=== PATIENT | female | born 1940 | race Caucasian/White ===

== ENCOUNTER 2018-03-30 06:47 | Inpatient (IN) ==
--- NOTE | 2018-03-30 07:12 | ED ---
HPI General Chief Complaint: Altered Mental Status Stated Complaint: resp Time Seen by Provider: 03/30/18 06:51 History of Present Illness HPI narrative: This is a 77-year-old female with a history of COPD, hypertension , dyslipidemia, recent pneumonia, who [facility] status. The patient is unable to give any history. According to the paramedics, when they arrived there, she was obtunded. She would arouse to sternal rub. There is no reported fevers. The patient reportedly recently had a mandible fracture and a recent pneumonia. Report was that she had coarse rhonchorous respirations when paramedics arrived. The patient is awake answering questions when she arrived here. Related Data Home Medications Medication Instructions Recorded Confirmed acetaminophen 650 mg PO Q4H PRN 03/30/18 03/30/18 albuterol sulfate 2.5 mg INHALATION Q4H PRN 03/30/18 03/30/18 atenolol 50 mg PO DAILY 03/30/18 03/30/18 budesonide 0.5 mg INHALATION BID 03/30/18 03/30/18 buspirone 7.5 mg PO BID 03/30/18 03/30/18 cefuroxime axetil 250 mg PO Q12H 03/30/18 03/30/18 ipratropium-albuterol 3 ml INHALATION QID 03/30/18 03/30/18 ipratropium-albuterol [Combivent 1 puff INHALATION TID 03/30/18 03/30/18 Respimat] magnesium hydroxide [Milk of 15 ml PO DAILY PRN 03/30/18 03/30/18 Magnesia] montelukast 10 mg PO QPM 03/30/18 03/30/18 simethicone [Gas-X Extra Strength] 125 mg PO TID 03/30/18 03/30/18 valsartan 160 mg PO DAILY 03/30/18 03/30/18 Allergies Allergy/AdvReac Type Severity Reaction Status Date / Time No Known Allergies Allergy Verified 03/30/18 07:40 Review of Systems Constitutional Denies chills and Denies fever(s) Eyes Reports system reviewed and no additional complaints, except as docu ENT Reports system reviewed and no additional complaints, except as docu Cardiovascular Denies chest pain, Denies diaphoresis and Reports dyspnea Respiratory Denies chest congestion, Reports cough and Reports dyspnea Gastrointestinal Denies abdominal pain, Denies nausea and Denies vomiting Genitourinary Reports system reviewed and no additional complaints, except as docu Musculoskeletal Reports system reviewed and no additional complaints, except as docu Neurologic Denies headache(s), Reports weakness (Generalized weakness) and Reports other ( Reported decreased mental status. Patient is now awake and able to answer questions.) [facility] Medical History Medical History Allergic rhinitis (Acute) Anxiety (Acute) COPD (chronic obstructive pulmonary disease) (Acute) Fall (Acute) GERD (gastroesophageal reflux disease) (Acute) HLD (hyperlipidemia) (Acute) HTN (hypertension) (Acute) Mandible fracture (Acute) PNA (pneumonia) (Acute) Social History Social History Substance History: No History of Abuse Smoking Status: Former smoker How Often Do You Have a Drink Containing Alcohol: Never Recent Travel in [facility] within the Last 8 Weeks: No Recent Out of Country Travel within the Last 8 Weeks: No Immunization History Tetanus Immunization: Unable to Assess Exam Narrative Exam Narrative: GENERAL: Elderly weak appearing female in mild respiratory discomfort. SKIN: Focused skin assessment warm/dry. HEAD: Atraumatic. Normocephalic. EYES: No scleral icterus. No injection or drainage. ENT: No nasal bleeding or discharge. Mucous membranes pink and moist. NECK: Trachea midline. No JVD. Supple. CARDIOVASCULAR: Regular rate and rhythm. No ectopy appreciated. RESPIRATORY: Coarse rhonchi bilaterally. Decreased respiratory effort. GASTROINTESTINAL: Abdomen soft, non-tender, nondistended. Hepatic and splenic margins not palpable. MUSCULOSKELETAL: No obvious deformities. No clubbing. No cyanosis. No edema. NEUROLOGICAL: Arousable. No obvious cranial nerve deficits. Motor grossly within normal limits. Weak speech. PSYCHIATRIC: Appropriate mood and affect; insight and judgment normal. Course Initial Documented Vital Signs Pulse Rate 79 03/30/18 06:58 Respiratory Rate 16 03/30/18 06:58 Blood Pressure 175/83 H 03/30/18 06:58 Pulse Oximetry 100 03/30/18 06:58 Last Documented Vital Signs Temperature 98.4 F 03/30/18 07:34 Pulse Rate 72 03/30/18 08:34 Respiratory Rate 16 03/30/18 08:34 Blood Pressure 185/82 H 03/30/18 08:34 Pulse Oximetry 100 03/30/18 08:34 Medical Decision Making MDM Narrative Medical decision making narrative: This is a 77-year-old female who [facility] for reported altered [facility] status. Patient was recently seen at another hospital and diagnosed with a mandible fracture and ammonia. The patient still has a left lower lobe pneumonia. She is currently being treated for that. She is afebrile. Her white blood cell count is within normal limits. EKG shows normal sinus rhythm with no acute ST elevation or depression. Her labs revealed a troponin of 0.5. The patient is not complaining of chest pain. She does have a cough and was having some shortness of breath. She is awake and able to answer questions now.She will be admitted for observation. I spoke with Tisha from Dr. Townsend office who agrees with the plan. Medical Screen Exam Complete: Yes Emergency Medical Condition: Yes Differential Diagnosis Differential Diagnosis: Sepsis versus pneumonia intracranial injury versus metabolic derangement Lab Data Result diagrams: 03/30/18 07:25 03/30/18 07:25 Lab Results 03/30/18 03/30/18 03/30/18 Range/Units 07:25 07:25 07:25 WBC 8.1 (4.0-11.0) th/mm3 RBC 4.06 (4.00-5.30) mil/mm3 Hgb 11.7 (11.6-15.3) gm/dL Hct 35.1 (35.0-46.0) % MCV 86.4 (80.0-100.0) fL MCH 28.8 (27.0-34.0) pg MCHC 33.3 (32.0-36.0) % RDW 14.7 (11.6-17.2) % Plt Count 177 (150-450) th/mm3 MPV 8.6 (7.0-11.0) fL Neut % (Auto) 74.0 H (16.0-70.0) % Lymph % (Auto) 17.5 (9.0-44.0) % Nicholas % (Auto) 7.5 (0.0-8.0) % Eos % (Auto) 0.3 (0.0-4.0) % Baso % (Auto) 0.7 (0.0-2.0) % Neut # (Auto) 6.0 (1.8-7.7) th/mm3 Lymph # (Auto) 1.4 (1.0-4.8) th/mm3 Nicholas # (Auto) 0.6 (0.0-0.9) th/mm3 Eos # (Auto) 0.0 (0.0-0.4) th/mm3 Baso # (Auto) 0.1 (0.0-0.2) th/mm3 WBC Differential . Differential Comment Auto diff final Sodium 134 L (136-145) meq/L Potassium 4.2 (3.5-5.1) meq/L Chloride 96 L (98-107) meq/L Carbon Dioxide 30.1 (21.0-32.0) meq/L Anion Gap 8 (5-15) meq/L BUN 19 H (7-18) mg/dL Creatinine 0.81 (0.50-1.00) mg/dL Estimated GFR 68 L (>89) mL/min Random Glucose 89 (74-106) mg/dL Lactic Acid 0.9 (0.4-2.0) mmol/L Calcium 8.2 L (8.5-10.1) mg/dL Magnesium 1.3 L (1.5-2.5) mg/dL Total Bilirubin 0.6 (0.2-1.0) mg/dL AST 15 (15-37) U/L ALT 21 (10-53) U/L Alkaline Phosphatase 58 (45-117) U/L Troponin I 0.50 H (0.02-0.05) ng/mL Total Protein 6.0 L (6.4-8.2) g/dL Albumin 2.9 L (3.4-5.0) g/dL TSH 0.910 (0.358-3.740) uIU/mL Urine Color (Yellw/Straw) Urine Clarity (Clear) Urine pH (5.0-8.5) Ur Specific [place] (1.002-1.035) Urine Protein (Neg-Trace) mg/dL Urine Glucose (UA) (Negative) mg/dL Urine Ketones (Negative) mg/dL Urine Occult Blood (Negative) Urine Nitrate (Negative) Urine Bilirubin (Negative) Urine Urobilinogen (Less than 2) mg/dL Ur Leukocyte Esterase (Negative) Urine RBC (0-3) /hpf Urine WBC (0-5) /hpf Ur Squamous Epith Cells (0-5) /hpf Urine Mucus (Occasional) /lpf Micro UA Comment Ur Microscopic Review Urine Culture Comments 03/30/18 Range/Units 07:30 WBC (4.0-11.0) th/mm3 RBC (4.00-5.30) mil/mm3 Hgb (11.6-15.3) gm/dL Hct (35.0-46.0) % MCV (80.0-100.0) fL MCH (27.0-34.0) pg MCHC (32.0-36.0) % RDW (11.6-17.2) % Plt Count (150-450) th/mm3 MPV (7.0-11.0) fL Neut % (Auto) (16.0-70.0) % Lymph % (Auto) (9.0-44.0) % Nicholas % (Auto) (0.0-8.0) % Eos % (Auto) (0.0-4.0) % Baso % (Auto) (0.0-2.0) % Neut # (Auto) (1.8-7.7) th/mm3 Lymph # (Auto) (1.0-4.8) th/mm3 Nicholas # (Auto) (0.0-0.9) th/mm3 Eos # (Auto) (0.0-0.4) th/mm3 Baso # (Auto) (0.0-0.2) th/mm3 WBC Differential Differential Comment Sodium (136-145) meq/L Potassium (3.5-5.1) meq/L Chloride (98-107) meq/L Carbon Dioxide (21.0-32.0) meq/L Anion Gap (5-15) meq/L BUN (7-18) mg/dL Creatinine (0.50-1.00) mg/dL Estimated GFR (>89) mL/min Random Glucose (74-106) mg/dL Lactic Acid (0.4-2.0) mmol/L Calcium (8.5-10.1) mg/dL Magnesium (1.5-2.5) mg/dL Total Bilirubin (0.2-1.0) mg/dL AST (15-37) U/L ALT (10-53) U/L Alkaline Phosphatase (45-117) U/L Troponin I (0.02-0.05) ng/mL Total Protein (6.4-8.2) g/dL Albumin (3.4-5.0) g/dL TSH (0.358-3.740) uIU/mL Urine Color Straw (Yellw/Straw) Urine Clarity Clear (Clear) Urine pH 7.0 (5.0-8.5) Ur Specific [place] 1.011 (1.002-1.035) Urine Protein Negative (Neg-Trace) mg/dL Urine Glucose (UA) 50 (Negative) mg/dL Urine Ketones Negative (Negative) mg/dL Urine Occult Blood Negative (Negative) Urine Nitrate Negative (Negative) Urine Bilirubin Negative (Negative) Urine Urobilinogen Less than 2 (Less than 2) mg/dL Ur Leukocyte Esterase Negative (Negative) Urine RBC 1 (0-3) /hpf Urine WBC 1 (0-5) /hpf Ur Squamous Epith Cells <1 (0-5) /hpf Urine Mucus Few H (Occasional) /lpf Micro UA Comment Cath-culture not ind Ur Microscopic Review Not Reportable Urine Culture Comments Cath-cult not ind Imaging Data Radiologist's impression: Chest X-Ray 03/30/18 07:17 CONCLUSION: 1. Left lower lobe airspace consolidation concerning for pneumonia given history. Head CT 03/30/18 07:17 CONCLUSION: 1. Negative for acute process . Discharge Plan Discharge Disposition Patient Disposition: ED Admit(ED Internal Use Only) Discharge Order Discharge Orders: ED Use Only Admit Order (Routine); Ordered 03/30/18 Ordered By: Poli Tong Discharge Details Diagnosis: Elevated troponin I level, Pneumonia Physicians Team ED Provider: Poli Tong Primary Care Provider: Michael Whyte Attending Provider: Michael Whyte Discharge Interventions Interventions: Vital Signs Last Done: 03/30/18 08:34 Status ED Status: Admitted Observation Patient
[2018-03-30 07:50] LABS: Baso # (Auto) 0.1 th/mm3 (0.0-0.2); Baso % (Auto) 0.7 % (0.0-2.0); Eos % (Auto) 0.3 % (0.0-4.0); Hematocrit 35.1 % (35.0-46.0); Hemoglobin 11.7 gm/dL (11.6-15.3); Lymph # (Auto) 1.4 th/mm3 (1.0-4.8); Lymph % (Auto) 17.5 % (9.0-44.0); Mean Corpuscular HGB Conc 33.3 % (32.0-36.0); Mean Corpuscular Hemoglobin 28.8 pg (27.0-34.0); Mean Corpuscular Volume 86.4 fL (80.0-100.0); Mean Platelet Volume 8.6 fL (7.0-11.0); Mono # (Auto) 0.6 th/mm3 (0.0-0.9); Mono % (Auto) 7.5 % (0.0-8.0); Platelet Count 177 th/mm3 (150-450); Red Blood Count 4.06 mil/mm3 (4.00-5.30); Red Cell Distribution Width 14.7 % (11.6-17.2); White Blood Count 8.1 th/mm3 (4.0-11.0)
[2018-03-30 07:57] LABS: Bilirubin,Urine Negative (Negative); Clarity,Urine Clear (Clear); Color,Urine Straw (Yellw/Straw); Glucose,Urine (UA) 50 mg/dL (Negative); Leukocyte Esterase,Urine Negative (Negative); Mucus,Urine Few /lpf (Occasional); Nitrite,Urine Negative (Negative); Specific Gravity,Urine 1.011 (1.002-1.035); Squamous Epithelial Cell,Urine <1 /hpf (0-5)
[2018-03-30 08:04] LABS: Alanine Aminotransferase 21 U/L (10-53); Albumin 2.9 g/dL (3.4-5.0); Anion Gap 8 meq/L (5-15); Aspartate Aminotransferase 15 U/L (15-37); Blood Urea Nitrogen 19 mg/dL (7-18); Calcium 8.2 mg/dL (8.5-10.1); Carbon Dioxide 30.1 meq/L (21.0-32.0); Chloride 96 meq/L (98-107); Glomerular Filtration Rate 68 mL/min (>89); Glucose,Random 89 mg/dL (74-106); Magnesium 1.3 mg/dL (1.5-2.5); Potassium 4.2 meq/L (3.5-5.1); Sodium 134 meq/L (136-145)
--- NOTE | 2018-03-30 08:06 | XR ---
EXAM DATE: 03/30/2018 7:58 AM EST AGE/SEX: 77 years / Female INDICATIONS: Cough and shortness of breath. CLINICAL DATA: This is the patient's initial encounter. Patient reports that signs and symptoms have been present for 1 day and indicates a pain score of 0/10. MEDICAL/SURGICAL HISTORY: Chronic obstructive pulmonary disease. Gastroesophageal reflux disea se. Hypertension. None. COMPARISON: No prior exams available for comparison. FINDINGS: Patchy airspace consolidation in the left lower lung zone. Cardiomediastinal contours are within norm al limits given portable technique. Bony thorax is intact. CONCLUSION: 1. Left lower lobe airspace consolidation concerning for pneumonia given history. Electronically signed by: Dennis Hung MD Board Certified Radiologist 03/30/2018 8:04 AM EST
[2018-03-30 08:14] LABS: Alkaline Phosphatase 58 U/L (45-117)
--- NOTE | 2018-03-30 08:18 | CT ---
EXAM DATE: 03/30/2018 8:06 AM EST AGE/SEX: 77 years / Female INDICATIONS: Altered mental status. Found unresponsive. Bilateral leg numbness. CLINICAL DATA: This is the patient's initial encounter. Patient reports that signs and symptoms have been present for 1 day and indicates a pain score of 0/10. MEDICAL/SURGICAL HISTORY: Chronic obstructive pulmonary disease. Hypertension. None. RADIATION DOSE: 35.93 CTDI (mGy) COMPARISON: No prior exams available for comparison. TECHNIQUE: CT of the head without contrast. Using automated exposure control and adjustment of the mA and/or kV according to patient size, radiation dose was kept as low as reasonably achievable to ob tain optimal diagnostic quality images. DICOM format image data is available electronically for revi ew and comparison. FINDINGS: Cerebrum: The ventricles are normal for age. No evidence of midline shift, mass lesion, hemorrhage or acute infarction. No extraaxial fluid collections are seen. Posterior Fossa: The cerebellum and brainstem are intact. The 4th ventricle is midline. The cerebe llopontine angle is unremarkable. Extracranial: The visualized portion of the orbits is intact. Skull: The calvaria is intact. No evidence of skull fracture. CONCLUSION: 1. Negative for acute process . Electronically signed by: Jemal Stevenson MD Board Certified Radiologist 03/30/2018 8:17 AM EST
--- NOTE | 2018-03-30 11:06 | MB ---
cc: Merlin Lewis MD DATE: 03/30/2018 REASON FOR CONSULTATION: Abnormal troponin level. HISTORY OF PRESENT ILLNESS: The patient is a 77-year-old white female with a history of COPD, hypertension, gastroesophageal reflux disease, hyperlipidemia, who was brought in from her rehab facility due to decreased responsiveness. A troponin level was checked and found to be abnormal. She denies chest pain, palpitations, dizziness, syncope, or near syncope, pedal edema, paroxysmal nocturnal dyspnea, change in chronic mild to moderate dyspnea. PAST MEDICAL HISTORY: 1. Hypertension. 2. Hyperlipidemia. 3. Gastroesophageal reflux disease. 4. Chronic obstructive pulmonary disease. 5. Recent pneumonia. PAST SURGICAL HISTORY: None. CARDIAC MEDICATIONS AT HOME: 1. Valsartan 160 mg daily. 2. Tenormin 50 mg daily. ALLERGIES: NO KNOWN DRUG ALLERGIES. FAMILY HISTORY: Noncontributory. SOCIAL HISTORY: The patient is a former smoker. She denies alcohol abuse. REVIEW OF SYSTEMS: As in the history of present illness, otherwise negative or noncontributory. She also denies headache, abdominal pain, melena, dyspepsia, bright red blood per rectum, fevers. PHYSICAL EXAMINATION: VITAL SIGNS: Her blood pressure 175/77 with a pulse of 73, respirations 18. GENERAL: She is a well-developed, well-nourished white female, in no acute distress. NECK: Jugular venous pressure is normal. Carotid pulses are 2+ bilaterally and without bruits. CHEST: Reveals diffuse scattered rhonchi. CARDIAC: She has a regular rhythm and rate without S3, S4, or murmur. ABDOMEN: She has a soft, nontender abdomen. Bowel sounds are present. There is no definite hepatosplenomegaly. EXTREMITIES: Reveals no clubbing, cyanosis or edema. LABORATORY DATA: EKG shows normal sinus rhythm, normal EKG. Chest x-ray shows left lower lobe airspace consolidation. LABORATORY DATA: Includes normal CBC. Potassium 4.2, BUN 19, creatinine 0.81. Troponin 0.50. IMPRESSION: Minimally abnormal troponin levels in this 77-year-old white female with a history of COPD, gastroesophageal reflux disease, hypertension, hyperlipidemia. At this point, there is no other evidence for acute coronary syndrome. EKG is normal. The patient denies any recent chest pain symptoms. There is no definite evidence for congestive heart failure. RECOMMENDATIONS: 1. Check a 2-D echo to assess her left ventricular function. 2. Will followup as needed. She is cleared for discharge from a cardiac standpoint. Merlin Lewis MD [facility] , 10:50 AM , 10:58 AM MTDWilton
--- NOTE | 2018-03-30 12:44 | P.HPFP ---
History of Present Illness Primary Care Physician: Michael Whyte DO History of Present Illness: 77 year old female with PMH of Htn, Copd, GERD. She presented to ER for AMS from [facility]. She is there for rehab s/p PNA and Fx pelvis. She is currently being treated with ceftin for PNA. She is currently Alert and oriented. She was found to have some elevated troponin, denies CP,does have some SOB, currently on O2, does not wear o2 at home - Diagnosis (1) Elevated troponin I level (2) Pneumonia (3) COPD (chronic obstructive pulmonary disease) (4) HTN (hypertension) [facility] - History History Provided By: Medical Record, Psychiatric Nursing Assistant / EMT - Medical History Medical History: Medical History (Last Updated 03/30/18 @ 07:05 by Sindhu Bush RN) Allergic rhinitis Anxiety COPD (chronic obstructive pulmonary disease) Fall GERD (gastroesophageal reflux disease) HLD (hyperlipidemia) HTN (hypertension) Mandible fracture PNA (pneumonia) - Tobacco History Smoking Status: Former smoker - Alcohol History How Often Do You Have a Drink Containing Alcohol: Never - Substance Use History Substance History: No History of Abuse - Travel History Recent Travel in the [place] Within the Last 8 Weeks: No Recent Travel Out of the Country Within the Last 8 Weeks: No - Immunization History Tetanus Immunization: Unable to Assess Medications and Allergies Active Medications: Active Medications Al Hydroxide/Mg Hydroxide (Milk Of Shilpa Laws) 15 ml PO DAILY PRN PRN Reason: Constipation Atenolol (Tenormin) 50 mg PO DAILY AURELIANO Cefuroxime Axetil (Ceftin) 250 mg PO Q12H AURELIANO Montelukast Sodium (Singulair) 10 mg PO QPM AURELIANO Non-Formulary Medication (Albuterol Sulfate [Albuterol Sulfate]) 2.5 mg INHALATION Q4H PRN PRN Reason: Shortness Of Breath Non-Formulary Medication (Budesonide [Budesonide]) 0.5 mg INHALATION BID AURELIANO Non-Formulary Medication (Buspirone [Buspirone]) 7.5 mg PO BID AURELIANO Non-Formulary Medication (Ipratropium-Albuterol [Ipratropium-Albuterol]) 3 ml INHALATION QID AURELIANO Non-Formulary Medication (Simethicone [Gas-X Extra Strength]) 125 mg PO TID AURELIANO Sodium Chloride (Ns Flush) 2 ml IV.FLUSH PRN PRN PRN Reason: FLUSH AFTER USING IV ACCESS Valsartan (Diovan) 160 mg PO DAILY AURELIANO Allergies Allergy/AdvReac Type Severity Reaction Status Date / Time No Known Allergies Allergy Verified 03/30/18 07:40 Home Medications Medication Instructions Recorded Confirmed Type acetaminophen 650 mg PO Q4H PRN 03/30/18 03/30/18 History albuterol sulfate 2.5 mg INHALATION Q4H PRN 03/30/18 03/30/18 History atenolol 50 mg PO DAILY 03/30/18 03/30/18 History budesonide 0.5 mg INHALATION BID 03/30/18 03/30/18 History buspirone 7.5 mg PO BID 03/30/18 03/30/18 History cefuroxime axetil 250 mg PO Q12H 03/30/18 03/30/18 History ipratropium-albuterol 3 ml INHALATION QID 03/30/18 03/30/18 History ipratropium-albuterol [Combivent 1 puff INHALATION TID 03/30/18 03/30/18 History Respimat] magnesium hydroxide [Milk of 15 ml PO DAILY PRN 03/30/18 03/30/18 History Magnesia] montelukast 10 mg PO QPM 03/30/18 03/30/18 History simethicone [Gas-X Extra Strength] 125 mg PO TID 03/30/18 03/30/18 History valsartan 160 mg PO DAILY 03/30/18 03/30/18 History Exam Vital signs: Vital Signs 03/30/18 06:58 03/30/18 07:08 03/30/18 07:28 Temperature Pulse Rate 79 81 71 Respiratory Rate 16 20 Blood Pressure 175/83 H 175/83 H Pulse Oximetry 100 100 03/30/18 07:34 03/30/18 07:35 03/30/18 08:34 Temperature 98.4 F Pulse Rate 72 Respiratory Rate 16 Blood Pressure 185/82 H Pulse Oximetry 96 96 100 03/30/18 10:23 Temperature Pulse Rate 73 Respiratory Rate 18 Blood Pressure 175/77 H Pulse Oximetry 100 Intake & Output 03/29/18 03/30/18 03/30/18 18:59 06:59 18:59 Output Total 550 / 550 Balance -550 / -550 Weight 55.338 kg Output: Urine Amount (Catheter) 550 / 550 Straight 550 / 550 - Constitutional no acute distress - Routine HEENT Exam ENT: Present: mucous membranes moist - Routine Neck Exam Present: supple - Routine Respiratory Exam Present: respiratory distress - Routine Cardiovascular Exam Present: S1, S2 - Routine Abdominal Exam Present: soft, normoactive bowel sounds - Routine Skin Exam Present: dry, warm - Routine Neurological Exam Present: alert, oriented X3 Results - Labs Result diagrams: 03/30/18 07:25 03/30/18 07:25 Abnormal lab results 03/30/18 03/30/18 03/30/18 Range/Units 07:25 07:25 07:30 Neut % (Auto) 74.0 H (16.0-70.0) % Sodium 134 L (136-145) meq/L Chloride 96 L (98-107) meq/L BUN 19 H (7-18) mg/dL Estimated GFR 68 L (>89) mL/min Calcium 8.2 L (8.5-10.1) mg/dL Magnesium 1.3 L (1.5-2.5) mg/dL Troponin I 0.50 H (0.02-0.05) ng/mL Total Protein 6.0 L (6.4-8.2) g/dL Albumin 2.9 L (3.4-5.0) g/dL Urine Mucus Few H (Occasional) /lpf 03/30/18 Range/Units 10:10 Neut % (Auto) (16.0-70.0) % Sodium (136-145) meq/L Chloride (98-107) meq/L BUN (7-18) mg/dL Estimated GFR (>89) mL/min Calcium (8.5-10.1) mg/dL Magnesium (1.5-2.5) mg/dL Troponin I 0.44 H (0.02-0.05) ng/mL Total Protein (6.4-8.2) g/dL Albumin (3.4-5.0) g/dL Urine Mucus (Occasional) /lpf Short CBC 03/30/18 Range/Units 07:25 WBC 8.1 (4.0-11.0) th/mm3 Hgb 11.7 (11.6-15.3) gm/dL Hct 35.1 (35.0-46.0) % Plt Count 177 (150-450) th/mm3 BMP 03/30/18 07:25 Sodium 134 L Potassium 4.2 Chloride 96 L Carbon Dioxide 30.1 BUN 19 H Creatinine 0.81 Calcium 8.2 L Cardiac Enzymes 03/30/18 03/30/18 Range/Units 07:25 10:10 Troponin I 0.50 H 0.44 H (0.02-0.05) ng/mL Liver Function 03/30/18 Range/Units 07:25 Total Bilirubin 0.6 (0.2-1.0) mg/dL AST 15 (15-37) U/L ALT 21 (10-53) U/L Alkaline Phosphatase 58 (45-117) U/L Albumin 2.9 L (3.4-5.0) g/dL Urine 03/30/18 Range/Units 07:30 Urine Color Straw (Yellw/Straw) Urine Clarity Clear (Clear) Urine pH 7.0 (5.0-8.5) Ur Specific [place] 1.011 (1.002-1.035) Urine Protein Negative (Neg-Trace) mg/dL Urine Glucose (UA) 50 (Negative) mg/dL - Imaging Impressions Chest X-Ray 03/30/18 07:17 CONCLUSION: 1. Left lower lobe airspace consolidation concerning for pneumonia given history. Head CT 03/30/18 07:17 CONCLUSION: 1. Negative for acute process . Caprini VTE Risk Assessment Caprini VTE Risk Assessment: Moderate/High Risk (score >= 2) Caprini Risk Assessment Model: Point Value = 1 Point Value = 2 Point Value = 3 Point Value = 5 Age 41-60 Minor surgery BMI > 25 kg/m2 Swollen legs Varicose veins or History of unexplained or recurrent spontaneous Oral contraceptives or hormone replacement Sepsis (< 1 month) Serious lung disease, including pneumonia (< 1 month) Abnormal pulmonary function Acute myocardial infarction Congestive heart failure (< 1 month) History of inflammatory bowel disease Medical patient at bed rest Age 61-74 Arthroscopic surgery Major open surgery (> 45 min) Laparoscopic surgery (> 45 min) Malignancy Confined to bed (> 72 hours) Immobilizing plaster cast Central venous access Age >= 75 History of VTE Family history of VTE Factor V Leiden Prothrombin [id number] Lupus anticoagulant Anticardiolipin antibodies Elevated serum homocysteine Heparin-induced thrombocytopenia Other congenital or acquired thrombophilia Stroke (< 1 month) Elective arthroplasty Hip, pelvis, or leg fracture Acute spinal cord injury (< 1 month) Prophylaxis Regimen: Total Risk Factor Score Risk Level Prophylaxis Regimen 0-1 Low Early ambulation 2 Moderate Order ONE of the following: *Sequential Compression Device (SCD) *Heparin 5000 units SQ BID 3-4 Higher Order ONE of the following medications: *Heparin 5000 units SQ TID *Enoxaparin/Lovenox 40 mg SQ daily (WT < 150 kg, CrCl > 30 mL/min) *Enoxaparin/Lovenox 30 mg SQ daily (WT < 150 kg, CrCl > 10-29 mL/min) *Enoxaparin/Lovenox 30 mg SQ BID (WT < 150 kg, CrCl > 30 mL/min) AND/OR *Sequential Compression Device (SCD) 5 or more Highest Order ONE of the following medications: *Heparin 5000 units SQ TID (Preferred with Epidurals) *Enoxaparin/Lovenox 40 mg SQ daily (WT < 150 kg, CrCl > 30 mL/min) *Enoxaparin/Lovenox 30 mg SQ daily (WT < 150 kg, CrCl > 10-29 mL/min) *Enoxaparin/Lovenox 30 mg SQ BID (WT < 150 kg, CrCl > 30 mL/min) AND *Sequential Compression Device (SCD) Assessment and Plan - Assessment (1) Elevated troponin I level Code(s): R74.8 - Abnormal levels of other serum enzymes Status: Acute Plan: Serial troponin, cardiology consult (2) Pneumonia Code(s): J18.9 - Pneumonia, unspecified organism Status: Acute Plan: Currently on ceftin, afebrile, wbc wnl, cont to monitor (3) COPD (chronic obstructive pulmonary disease) Code(s): J44.9 - Chronic obstructive pulmonary disease, unspecified Status: Acute Plan: Cont with oxygen support, bronchodilators (4) HTN (hypertension) Code(s): I10 - Essential (primary) hypertension Status: Acute Plan: Cont home medications - Assessment and Plan [facility] will assume care on 03/31/18 0700 (2) Pneumonia Qualifiers: Pneumonia type: due to unspecified organism Laterality: left Lung location: lower lobe of lung Qualified Code(s): J18.1 - Lobar pneumonia, unspecified organism
--- NOTE | 2018-03-30 13:27 | ECG ---
Date Performed: 03/30/2018 Time Performed: 08:29:53 PTAGE: 77 years EKG: Sinus rhythm NORMAL ECG NO PREVIOUS TRACING DOCTOR: Felipe Gage Interpretating Date/Time 03/30/2018 13:25:33
[2018-03-30] MEDS: Simethicone 125 MG Chew Tablet PO SCH ×2 (14:58→17:49)
[2018-03-30] MEDS: Atenolol 50 MG Tablet PO SCH (15:00)
[2018-03-30] MEDS: Montelukast 10 MG Tablet PO SCH (17:49)
--- NOTE | 2018-03-30 20:21 | ECHRPT ---
Indication: Cardiomyopathy CONCLUSIONS Normal left ventricular size and wall thickness. The left ventricular systolic function is normal wi th an estimated ejection fraction in the range of 60-65%. No regional wall motion abnormalities are pre sent. There is trace tricuspid valve regurgitation. The estimated pulmonary arterial pressure is 35 mmHg. BP: / HR: Rhythm: MEASUREMENTS (Male / Female) Normal Values Technical Quality:Technically difficult study 2D ECHO LV Diastolic Diameter PLAX 3.5 cm 4.2 - 5.9 / 3.9 - 5.3 cm LV Systolic Diameter PLAX 2.4 cm IVS Diastolic Thickness 1.0 cm 0.6 - 1.0 / 0.6 - 0.9 cm LVPW Diastolic Thickness 1.1 cm 0.6 - 1.0 / 0.6 - 0.9 cm LV Relative Wall Thickness 0.6 RV Internal Dim ED PLAX 3.0 cm LVOT Diameter 1.7 cm Aortic Root Diameter 2.7 cm LA Systolic Diameter LX 2.2 cm 3.0 - 4.0 / 2.7 - 3.8 cm DOPPLER AV Peak Velocity 114.0 cm/s AV Peak Gradient 5.2 mmHg LVOT Peak Velocity 99.2 cm/s LVOT Peak Gradient 3.9 mmHg AV Area Cont Eq pk 2.0 cm Mitral E Point Velocity 67.6 cm/s Mitral A Point Velocity 111.0 cm/s Mitral E to A Ratio 0.6 LV E' Lateral Velocity 3.7 cm/s Mitral E to LV E' Lateral Ratio 18.3 LV E' Septal Velocity 3.8 cm/s Mitral E to LV E' Septal Ratio 17.8 TR Peak Velocity 280.0 cm/s TR Peak Gradient 31.4 mmHg Right Atrial Pressure 10.0 mmHg Pulmonary Artery Systolic Pressu 41.4 mmHg Right Ventricular Systolic Press 41.4 mmHg PV Peak Velocity 168.0 cm/s PV Peak Gradient 11.3 mmHg FINDINGS LEFT VENTRICLE Normal left ventricular size and wall thickness. The left ventricular systolic function is normal wi th an estimated ejection fraction in the range of 60-65%. No regional wall motion abnormalities are pre sent. RIGHT VENTRICLE Normal right ventricular size and systolic function. LEFT ATRIUM The left atrial size is normal. RIGHT ATRIUM The right atrial size is normal. ATRIAL SEPTUM Normal atrial septal thickness without atrial level shunting by limited color doppler interrogation. AORTA The aortic root and proximal ascending aorta are normal in size on limited imaging. MITRAL VALVE Structurally normal mitral valve. No mitral valve stenosis or regurgitation. AORTIC VALVE Trileaflet aortic valve. No aortic valve stenosis or regurgitation. TRICUSPID VALVE There is trace tricuspid valve regurgitation. The estimated pulmonary arterial pressure is 35 mmHg. PULMONARY VALVE The pulmonary valve is not well visualized. VESSELS The inferior vena cava is normal in size. PERICARDIUM No pericardial effusion. Merlin Lewis MD (Electronically Signed) Final Date:30 March 2018 20:19
[2018-03-31 08:36] LABS: Baso % (Auto) 0.4 % (0.0-2.0); Eos % (Auto) 0.1 % (0.0-4.0); Hematocrit 29.1 % (35.0-46.0); Lymph # (Auto) 1.1 th/mm3 (1.0-4.8); Lymph % (Auto) 14.9 % (9.0-44.0); Mean Corpuscular HGB Conc 34.4 % (32.0-36.0); Mean Corpuscular Hemoglobin 29.5 pg (27.0-34.0); Mean Corpuscular Volume 85.9 fL (80.0-100.0); Mean Platelet Volume 8.4 fL (7.0-11.0); Mono # (Auto) 0.7 th/mm3 (0.0-0.9); Mono % (Auto) 9.6 % (0.0-8.0); Neut # (Auto) 5.4 th/mm3 (1.8-7.7); Platelet Count 151 th/mm3 (150-450); Red Blood Count 3.39 mil/mm3 (4.00-5.30); Red Cell Distribution Width 14.4 % (11.6-17.2); White Blood Count 7.1 th/mm3 (4.0-11.0)
[2018-03-31 08:43] LABS: Alanine Aminotransferase 17 U/L (10-53); Albumin 2.3 g/dL (3.4-5.0); Alkaline Phosphatase 47 U/L (45-117); Anion Gap 7 meq/L (5-15); Aspartate Aminotransferase 14 U/L (15-37); Blood Urea Nitrogen 19 mg/dL (7-18); Calcium 7.8 mg/dL (8.5-10.1); Carbon Dioxide 28.5 meq/L (21.0-32.0); Chloride 98 meq/L (98-107); Glomerular Filtration Rate 76 mL/min (>89); Glucose,Random 79 mg/dL (74-106); Potassium 3.6 meq/L (3.5-5.1); Sodium 133 meq/L (136-145); Total Protein 5.1 g/dL (6.4-8.2)
[2018-03-31] MEDS: Atenolol 50 MG Tablet PO SCH (09:31)
[2018-03-31] MEDS: Simethicone 125 MG Chew Tablet PO SCH ×3 (09:31→18:10)
--- NOTE | 2018-03-31 11:02 | P.PNIM ---
Subjective Interval history: Follow-up for altered mental status, generalized weakness. Patient is doing well. No fever, chills. On room air. She does not want to go back to [facility] ([facility] She would like to go to a SNF in [place]. Physical Exam Vital signs: Last Vital Signs Temp 98.8 F 03/31/18 07:56 Pulse 76 03/31/18 08:40 Resp 16 03/31/18 08:40 BP 155/73 H 03/31/18 07:56 Pulse Ox 97 03/31/18 08:40 Intake & Output 03/29/18 03/30/18 03/31/18 04/01/18 06:59 06:59 06:59 06:59 Output Total 550 / 550 Balance -550 / -550 Weight 55.338 kg 56.6 kg Narrative: GENERAL: SKIN: Warm and dry. HEAD: Normocephalic. EYES: No scleral icterus. No injection or drainage. NECK: Supple, trachea midline. No JVD or lymphadenopathy. CARDIOVASCULAR: Regular rate and rhythm without murmurs, gallops, or rubs. RESPIRATORY: Moderate air entry, no appreciable wheezing. No accessory muscle use. GASTROINTESTINAL: Abdomen soft, non-tender, nondistended. MUSCULOSKELETAL: No cyanosis, or edema. BACK: Nontender without obvious deformity. No CVA tenderness. Urinary Catheter Management Straight: Cath placed during this visit: yes Urethral indwelling: No Insertion date: 03/30/18 Insertion time: 07:30 Results Labs CBC & Chem 7: 03/31/18 06:20 03/31/18 06:20 Procedures Procedures: Echo 03/30/2018 Normal left ventricular size and wall thickness. The left ventricular systolic function is normal with an estimated ejection fraction in the range of 60-65%. No regional wall motion abnormalities are present. There is trace tricuspid valve regurgitation. The estimated pulmonary arterial pressure is 35 mmHg. Assessment and Plan (1) Elevated troponin I level: Code(s): R74.8 - Abnormal levels of other serum enzymes Status: Acute (2) Pneumonia: Code(s): J18.9 - Pneumonia, unspecified organism Status: Acute (3) COPD (chronic obstructive pulmonary disease): Code(s): J44.9 - Chronic obstructive pulmonary disease, unspecified Status: Acute (4) HTN (hypertension): Code(s): I10 - Essential (primary) hypertension Status: Acute Plan Ms. Li is a pleasant 77-year-old female with a history of COPD, hypertension, hyperlipidemia who was brought to the hospital from SNF due to altered mental status and weakness. Upon arrival, her troponins were slightly elevated. However patient did not have any chest pain. Patient was evaluated by cardiology and echocardiogram was recommended but no other cardiac workup. Community-acquired pneumonia COPD Continue cefuroxime 250 mg every 12 hours. Continue DuoNeb, Pulmicort. Echocardiogram shows normal left ventricular size and wall thickness. Ejection fraction 60-65%. No regional wall motion abnormalities. Hypertension Continue atenolol 50 mg p.o. daily and losartan 50 mg p.o. daily. Patient's blood pressure is well controlled. Full code. We will start Lovenox 40 mg daily for DVT prophylaxis. Progress Note: Quality VTE Deep Vein Thrombosis/Pulmonary Embolism Present on Admission: No _ (1) COPD (chronic obstructive pulmonary disease) Qualifiers: COPD type: Chronic bronchitis type: Emphysema type: (2) HTN (hypertension) Qualifiers: Hypertension type: (3) Pneumonia Qualifiers: Aspiration pneumonia type: Laterality: left Lung location: lower lobe of lung Pneumonia type: due to unspecified organism Qualified Code(s): J18.1 - Lobar pneumonia, unspecified organism
[2018-03-31] MEDS: Enoxaparin Inj 40 MG/0.4 ML Syringe SQ SCH (18:10)
[2018-03-31] MEDS: Montelukast 10 MG Tablet PO SCH (18:10)
[2018-04-01] MEDS ORDERED: Acetaminophen 325 MG Tablet PO ONE (01:06)
[2018-04-01] MEDS: Simethicone 125 MG Chew Tablet PO SCH ×3 (09:12→17:25)
[2018-04-01] MEDS: Atenolol 50 MG Tablet PO SCH (09:12)
--- NOTE | 2018-04-01 14:24 | P.PNIM ---
Subjective Interval history: Follow-up for altered mental status, generalized weakness. Patient is doing well. No fever, chills. Again states that she would rather go to a SNF in [place]. Physical Exam Vital signs: Last Vital Signs Temp 98.0 F 04/01/18 12:00 Pulse 83 04/01/18 12:00 Resp 15 04/01/18 12:00 BP 105/52 L 04/01/18 12:00 Pulse Ox 97 04/01/18 12:00 Intake & Output 03/30/18 03/31/18 04/01/18 04/02/18 06:59 06:59 06:59 06:59 Intake Total 300 / 300 Output Total 550 / 550 400 / 400 Balance -550 / -550 -100 / -100 Weight 55.338 kg 56.6 kg 55.8 kg Narrative: GENERAL: Alert, NAD. SKIN: Warm and dry. HEAD: Normocephalic. EYES: No scleral icterus. No injection or drainage. NECK: Supple, trachea midline. No JVD or lymphadenopathy. CARDIOVASCULAR: Regular rate and rhythm without murmurs, gallops, or rubs. RESPIRATORY: Moderate air entry, no appreciable wheezing. No accessory muscle use. GASTROINTESTINAL: Abdomen soft, non-tender, nondistended. MUSCULOSKELETAL: No cyanosis, or edema. BACK: Nontender without obvious deformity. No CVA tenderness. Urinary Catheter Management Straight: Cath placed during this visit: yes Urethral indwelling: No Insertion date: 03/30/18 Insertion time: 07:30 Results Labs CBC & Chem 7: 03/31/18 06:20 03/31/18 06:20 Labs: Microbiology 03/30/18 07:20 Blood - Peripheral Aerobic Blood Culture - Preliminary No growth in 2 days 03/30/18 07:20 Blood - Peripheral Anaerobic Blood Culture - Preliminary No growth in 2 days 03/30/18 07:25 Blood - Peripheral Aerobic Blood Culture - Preliminary No growth in 2 days 03/30/18 07:25 Blood - Peripheral Anaerobic Blood Culture - Preliminary No growth in 2 days Procedures Procedures: Echo 03/30/2018 Normal left ventricular size and wall thickness. The left ventricular systolic function is normal with an estimated ejection fraction in the range of 60-65%. No regional wall motion abnormalities are present. There is trace tricuspid valve regurgitation. The estimated pulmonary arterial pressure is 35 mmHg. Assessment and Plan (1) Elevated troponin I level: Code(s): R74.8 - Abnormal levels of other serum enzymes Status: Acute (2) Pneumonia: Code(s): J18.9 - Pneumonia, unspecified organism Status: Acute (3) COPD (chronic obstructive pulmonary disease): Code(s): J44.9 - Chronic obstructive pulmonary disease, unspecified Status: Acute (4) HTN (hypertension): Code(s): I10 - Essential (primary) hypertension Status: Acute Plan Ms. Li is a pleasant 77-year-old female with a history of COPD, hypertension, hyperlipidemia who was brought to the hospital from SNF due to altered mental status and weakness. Upon arrival, her troponins were slightly elevated. However patient did not have any chest pain. Patient was evaluated by cardiology and echocardiogram was recommended but no other cardiac workup. Community-acquired pneumonia COPD Continue cefuroxime 250 mg every 12 hours. Continue DuoNeb, Pulmicort. Echocardiogram shows normal left ventricular size and wall thickness. Ejection fraction 60-65%. No regional wall motion abnormalities. Hypertension Continue atenolol 50 mg p.o. daily and losartan 50 mg p.o. daily. Patient's blood pressure is well controlled. Full code. Lovenox 40 mg daily for DVT prophylaxis. Discharge plan: Patient wants to go to [facility] in [facility]. Form 3008 signed. Patient will likely need insurance approval. Potential discharge on 04/02/1999 Progress Note: Quality VTE Deep Vein Thrombosis/Pulmonary Embolism Present on Admission: No _ (1) Pneumonia Qualifiers: Aspiration pneumonia type: Laterality: left Lung location: lower lobe of lung Pneumonia type: due to unspecified organism Qualified Code(s): J18.1 - Lobar pneumonia, unspecified organism (2) COPD (chronic obstructive pulmonary disease) Qualifiers: COPD type: Chronic bronchitis type: Emphysema type: (3) HTN (hypertension) Qualifiers: Hypertension type:
[2018-04-01] MEDS: Enoxaparin Inj 40 MG/0.4 ML Syringe SQ SCH (16:00)
[2018-04-01] MEDS: Montelukast 10 MG Tablet PO SCH (17:28)
[2018-04-01] MEDS: Acetaminophen 325 MG Tablet PO PRN (20:42)
[2018-04-02] MEDS: Simethicone 125 MG Chew Tablet PO SCH ×3 (09:37→18:23)
[2018-04-02] MEDS: Atenolol 50 MG Tablet PO SCH (09:38)
[2018-04-02] MEDS: Acetaminophen 325 MG Tablet PO PRN (15:25)
--- NOTE | 2018-04-02 16:45 | P.PNIM ---
Subjective Interval history: Follow-up for altered mental status, generalized weakness. Patient is doing well. She complains of not being able to void urine today. She had fever last night. Today, she was afebrile but in the afternoon she is experiencing low grade fever. No cough, chest pain. Physical Exam Vital signs: Last Vital Signs Temp 99.9 F H 04/02/18 12:00 Pulse 92 H 04/02/18 14:59 Resp 16 04/02/18 14:59 BP 161/91 H 04/02/18 12:00 Pulse Ox 95 04/02/18 12:00 Intake & Output 03/31/18 04/01/18 04/02/18 04/03/18 06:59 06:59 06:59 06:59 Intake Total 300 / 300 820 / 820 Output Total 550 / 550 400 / 400 200 / 200 Balance -550 / -550 -100 / -100 620 / 620 Weight 56.6 kg 55.8 kg 56 kg Narrative: GENERAL: Alert, NAD. SKIN: Warm and dry. HEAD: Normocephalic. EYES: No scleral icterus. No injection or drainage. NECK: Supple, trachea midline. No JVD or lymphadenopathy. CARDIOVASCULAR: Regular rate and rhythm without murmurs, gallops, or rubs. RESPIRATORY: Moderate air entry, no appreciable wheezing. No accessory muscle use. GASTROINTESTINAL: Abdomen soft, non-tender, nondistended. MUSCULOSKELETAL: No cyanosis, or edema. BACK: Nontender without obvious deformity. No CVA tenderness. Urinary Catheter Management Straight: Cath placed during this visit: yes Urethral indwelling: No Insertion date: 04/02/18 Insertion time: 13:00 Results Labs CBC & Chem 7: 03/31/18 06:20 03/31/18 06:20 Labs: Microbiology 03/30/18 07:20 Blood - Peripheral Aerobic Blood Culture - Preliminary No growth in 3 days 03/30/18 07:20 Blood - Peripheral Anaerobic Blood Culture - Preliminary No growth in 3 days 03/30/18 07:25 Blood - Peripheral Aerobic Blood Culture - Preliminary No growth in 3 days 03/30/18 07:25 Blood - Peripheral Anaerobic Blood Culture - Preliminary No growth in 3 days Procedures Procedures: Echo 03/30/2018 Normal left ventricular size and wall thickness. The left ventricular systolic function is normal with an estimated ejection fraction in the range of 60-65%. No regional wall motion abnormalities are present. There is trace tricuspid valve regurgitation. The estimated pulmonary arterial pressure is 35 mmHg. Assessment and Plan (1) Elevated troponin I level: Code(s): R74.8 - Abnormal levels of other serum enzymes Status: Acute (2) Pneumonia: Code(s): J18.9 - Pneumonia, unspecified organism Status: Acute (3) COPD (chronic obstructive pulmonary disease): Code(s): J44.9 - Chronic obstructive pulmonary disease, unspecified Status: Acute (4) HTN (hypertension): Code(s): I10 - Essential (primary) hypertension Status: Acute Plan Ms. Li is a pleasant 77-year-old female with a history of COPD, hypertension, hyperlipidemia who was brought to the hospital from SNF due to altered mental status and weakness. Upon arrival, her troponins were slightly elevated. However patient did not have any chest pain. Patient was evaluated by cardiology and echocardiogram was recommended but no other cardiac workup. Community-acquired pneumonia COPD Currently on cefuroxime 250 mg every 12 hours. -Given patient's fever and inability to urinate, we will d/c Cefuroxime and start patient on Ceftriaxone 1g Qday and Azithromycin 500mg Qday. -Obtain Urine cx, CXR today. Continue DuoNeb, Pulmicort. Echocardiogram shows normal left ventricular size and wall thickness. Ejection fraction 60-65%. No regional wall motion abnormalities. Hypertension Continue atenolol 50 mg p.o. daily and losartan 50 mg p.o. daily. Patient's blood pressure is well controlled. -Consider switching Atenolol to another beta saleem IF beta saleem is even needed. Full code. Lovenox 40 mg daily for DVT prophylaxis. Discharge plan: Patient wants to go to [facility] in [facility]. Form 3008 signed. Patient will likely need insurance approval. Progress Note: Quality VTE Deep Vein Thrombosis/Pulmonary Embolism Present on Admission: No _ (1) Pneumonia Qualifiers: Aspiration pneumonia type: Laterality: left Lung location: lower lobe of lung Pneumonia type: due to unspecified organism Qualified Code(s): J18.1 - Lobar pneumonia, unspecified organism (2) COPD (chronic obstructive pulmonary disease) Qualifiers: COPD type: Chronic bronchitis type: Emphysema type: (3) HTN (hypertension) Qualifiers: Hypertension type:
[2018-04-02] MEDS: Azithromycin 250 MG Tablet PO SCH (18:22)
[2018-04-02] MEDS: Enoxaparin Inj 40 MG/0.4 ML Syringe SQ SCH (18:22)
[2018-04-02] MEDS: Montelukast 10 MG Tablet PO SCH (18:23)
--- NOTE | 2018-04-02 18:45 | XR ---
EXAM DATE: 04/02/2018 6:42 PM EST AGE/SEX: 77 years / Female INDICATIONS: Fever CLINICAL DATA: This is the patient's subsequent encounter. Patient reports that signs and symptoms h ave been present for 3 days and indicates a pain score of 0/10. MEDICAL/SURGICAL HISTORY: . Chronic obstructive pulmonary disease. Gastroesophageal reflux dis ease. Hypertension. None. COMPARISON: [facility] [place], CHEST 1V SINGLE AP, 03/30/2018. . FINDINGS: Coarse reticular infiltrates present in the lung bases bilaterally, left worse than right. Cardiac co ntours are grossly unchanged. CONCLUSION: Bibasilar infiltrates Electronically signed by: Casey Knutson MD Board Certified Radiologist 04/02/2018 6:44 PM EST
[2018-04-02 20:02] LABS: Bacteria,Urine Few /hpf; Bilirubin,Urine Negative (Negative); Clarity,Urine Hazy (Clear); Color,Urine Yellow (Yellw/Straw); Glucose,Urine (UA) 50 mg/dL (Negative); Hyaline Casts,Urine 3 /lpf (0-3); Leukocyte Esterase,Urine Moderate (Negative); Mucus,Urine Few /lpf (Occasional); Nitrite,Urine Negative (Negative); Squamous Epithelial Cell,Urine 1 /hpf (0-5)
[2018-04-03 02:21] LABS: ABG Base Excess 0.8 mmol/L (-2-2); ABG PCO2 38 mmHg (38-42); ABG PO2 70 mmHg (61-120)
[2018-04-03] MEDS ORDERED: MethylPREDNISolone Sod Succinate Inj 40 MG/ML Vial IV.PUSH STA (02:22)
--- NOTE | 2018-04-03 02:57 | XR ---
EXAM DATE: 04/03/2018 2:39 AM EST AGE/SEX: 77 years / Female INDICATIONS: Short of breath. CLINICAL DATA: This is the patient's subsequent encounter. Patient reports that signs and symptoms h ave been present for 1 day and indicates a pain score of 0/10. MEDICAL/SURGICAL HISTORY: . Chronic obstructive pulmonary disease. Gastroesophageal reflux dis ease. Hypertension. Non-responsive. COMPARISON: [facility] [place] CHEST 1V SINGLE AP, 04/02/2018. . FINDINGS: A single AP view of the chest demonstrates worsening bibasilar consolidations. No discernible effusio ns. Heart is normal in size. Underlying emphysematous changes noted. CONCLUSION: Worsening bibasilar infiltrates. Electronically signed by: Rikki Bartlett MD Board Certified Radiologist 04/03/2018 2:56 AM EST
[2018-04-03] MEDS ORDERED: Vancomycin Consult Pharmacy OTHER PRN (03:20)
[2018-04-03 03:24] LABS: Baso # (Auto) 0.1 th/mm3 (0.0-0.2); Baso % (Auto) 0.3 % (0.0-2.0); Eos % (Auto) 0.3 % (0.0-4.0); Hematocrit 31.1 % (35.0-46.0); Hemoglobin 10.6 gm/dL (11.6-15.3); Lymph # (Auto) 1.4 th/mm3 (1.0-4.8); Lymph % (Auto) 9.1 % (9.0-44.0); Mean Corpuscular HGB Conc 34.2 % (32.0-36.0); Mean Corpuscular Volume 84.8 fL (80.0-100.0); Mono # (Auto) 0.9 th/mm3 (0.0-0.9); Mono % (Auto) 6.2 % (0.0-8.0); Neut # (Auto) 12.6 th/mm3 (1.8-7.7); Neut % (Auto) 84.1 % (16.0-70.0); Platelet Count 276 th/mm3 (150-450); Red Blood Count 3.67 mil/mm3 (4.00-5.30); Red Cell Distribution Width 14.6 % (11.6-17.2)
[2018-04-03 03:33] LABS: Calcium 7.9 mg/dL (8.5-10.1); Carbon Dioxide 27.4 meq/L (21.0-32.0); Potassium 4.2 meq/L (3.5-5.1)
[2018-04-03 03:36] LABS: Troponin I 0.15 ng/mL (0.02-0.05)
--- NOTE | 2018-04-03 03:38 | P.PNADD ---
Addendum to Inpatient Note Reason for Addendum: Additional Documentation Additional information: Subjective: This patient is a 77 year old female with PMH of HTN, COPD, and GERD admitted for pneumonia and UTI after being found to have altered mental status. Patient currently on azithromycin and Rocephin. At approximately 0207 a [facility] was called for this patient and the on-call resident team responded to room 1403. Upon arrival patient was tachypneic at a RR of 40/min, tachycardic at 120BPM, febrile at 103, blood pressure at 214/98 and satting 100% on 10 L nasal cannula. Patient appeared anxious but would not answer questions and would not tell us if she was having chest pain. A stat EKG , ABG, chest x-ray, troponins, d-dimer were ordered as well as 40 mg of IV Lasix and 40 mg of Solu-Medrol. Chest x-ray showed worsening bilateral lower lobe infiltrates and patient began to decompensate. A decision was made to transfer patient to a higher level of care and on-call team accompanied patient to the ICU and continued further workup. Additionally, troponins, BNP, CBC, blood cultures, and lactic acid were also ordered. Due to patient's respiratory effort the on-call team decided to put patient on BiPAP and continued to monitor and treat patient until afterschool babysitter arrived. Objective: GENERAL: Elderly but well-nourished, well-developed patient 77-year-old female who was anxious appearing and noticeably short of breath. SKIN: Warm and dry. No rash. Ecchymosis on forearms due to previous IV sites. EYES: No injection or drainage. EOMI. HENT: Normocephalic. Atraumatic. NECK: Trachea midline. CARDIOVASCULAR: Tachycardic at 120 with regular rhythm without obvious murmurs, gallops, or rubs. RESPIRATORY: Breath sounds diminished bilaterally. Rhonchorous with rales and poor airflow and lung bases bilaterally. Significant accessory muscle use particularly in the neck and costal muscles. Respiratory rate of 40 at bedside. GASTROINTESTINAL: Abdomen soft, non-tender, nondistended. BS WNL. MUSCULOSKELETAL: No cyanosis or edema. Strength grossly WNL. BACK: Nontender without obvious deformity. No CVA tenderness. NEURO/PSYCH: Afocal. Arousable but not engaging. Vital Signs 04/02/18 19:44 04/02/18 20:00 04/02/18 23:33 Temperature 98.1 F 98.1 F Pulse Rate 81 81 85 Respiratory Rate 18 17 14 Blood Pressure 166/70 H 137/62 Pulse Oximetry 91 L 93 L 94 L 04/03/18 03:06 Temperature Pulse Rate Respiratory Rate Blood Pressure Pulse Oximetry 100 Laboratory Results - last 24 hr 04/02/18 04/03/18 04/03/18 18:50 02:07 02:58 WBC 15.0 H RBC 3.67 L Hgb 10.6 L Hct 31.1 L MCV 84.8 MCH 29.0 MCHC 34.2 RDW 14.6 Plt Count 276 D MPV 8.0 Neut % (Auto) 84.1 H Lymph % (Auto) 9.1 Calloway % (Auto) 6.2 Eos % (Auto) 0.3 Baso % (Auto) 0.3 Neut # (Auto) 12.6 H Lymph # (Auto) 1.4 Calloway # (Auto) 0.9 Eos # (Auto) 0.0 Baso # (Auto) 0.1 WBC Differential . Differential Comment Auto diff final Puncture Site Right radial Patient Temperature 98.6 O2 Saturation 91 ABG pH 7.43 H ABG pCO2 38 ABG pO2 70 ABG HCO3 25 ABG O2 Content 14.0 ABG Base Excess 0.8 ABG Methemoglobin 1.2 Jayden Test Present Hemoglobin 10.9 L Carboxyhemoglobin 1.5 O2 Delivery Device Nasal cannula Liter Flow 4.00 Critical Value No Lactic Acid Urine Color Yellow Urine Clarity Hazy H Urine pH 5.0 Ur Specific Liguori 1.020 Urine Protein 30 H Urine Glucose (UA) 50 Urine Ketones Trace H Urine Occult Blood Small H Urine Nitrate Negative Urine Bilirubin Negative Urine Urobilinogen Less than 2 Ur Leukocyte Esterase Moderate H Urine RBC 17 H Urine WBC 35 H Ur Squamous Epith Cells 1 Urine Bacteria Few H Hyaline Casts 3 Urine Mucus Few H Micro UA Comment Cath-culture ind Ur Microscopic Review Not Reportable Urine Culture Comments Cath-cult indicated 04/03/18 02:58 WBC RBC Hgb Hct MCV MCH MCHC RDW Plt Count MPV Neut % (Auto) Lymph % (Auto) Calloway % (Auto) Eos % (Auto) Baso % (Auto) Neut # (Auto) Lymph # (Auto) Calloway # (Auto) Eos # (Auto) Baso # (Auto) WBC Differential Differential Comment Puncture Site Patient Temperature O2 Saturation ABG pH ABG pCO2 ABG pO2 ABG HCO3 ABG O2 Content ABG Base Excess ABG Methemoglobin Jayden Test Hemoglobin Carboxyhemoglobin O2 Delivery Device Liter Flow Critical Value Lactic Acid 1.7 Urine Color Urine Clarity Urine pH Ur Specific Liguori Urine Protein Urine Glucose (UA) Urine Ketones Urine Occult Blood Urine Nitrate Urine Bilirubin Urine Urobilinogen Ur Leukocyte Esterase Urine RBC Urine WBC Ur Squamous Epith Cells Urine Bacteria Hyaline Casts Urine Mucus Micro UA Comment Ur Microscopic Review Urine Culture Comments Assessment: This patient is a 77 year old female with PMH of HTN, COPD, and GERD currently treated with azithromycin and Rocephin for community-acquired pneumonia and UTI after being found to have altered mental status. Plan: -Transfer patient to ICU -Place on BiPAP -[employer] Inspector consulted -Switch antibiotics to azithromycin, cefepime, and vancomycin -Continue duo nebs -40 mg IV Lasix -40 mg Solu-Medrol -Follow-up with troponins -Follow-up with CBC -Follow-up with BMP -Follow-up lactic acid -Follow-up blood cultures -Follow-up with d-dimer -Low threshold for intubation
--- NOTE | 2018-04-03 04:06 | P.CONCC ---
History of Present Illness Primary Care Provider: Michael Whyte DO History of Present Illness: 77 year old female with past medical history of hypertension, COPD, GERD, presented to ER for AMS from [facility]. She is there for rehab s/p PNA and pelvis fracture. She was currently being treated with ceftin for PNA. She was found to have some elevated troponin, denied CP, does have some SOB, currently on O2, does not wear o2 at home. She has been admitted to hospitalist service and medicine floor, however clinically excoriated developing significant shortness of breath. The rapid response team was called and the patient has been transferred to ICU. Review of Systems unobtainable due to mental status PMFSH - History History Provided By: Patient - Medical History Medical History: Medical History (Last Reviewed 03/31/18 @ 15:23 by Ruchi Castillo) Allergic rhinitis Anxiety COPD (chronic obstructive pulmonary disease) Fall GERD (gastroesophageal reflux disease) HLD (hyperlipidemia) HTN (hypertension) Mandible fracture PNA (pneumonia) - Tobacco History Second Hand Smoke Exposure: No Tobacco Use In Past 30 Days: No Smoking Status: Never smoker - Alcohol History How Often Do You Have a Drink Containing Alcohol: Never - Substance Use History Substance History: No History of Abuse - Travel History Recent Travel in the [place] Within the Last 8 Weeks: No Recent Travel Out of the Country Within the Last 8 Weeks: No - Immunization History Tetanus Immunization: <5 Years Hx Influenza Vaccine This Season: Yes Medications and Allergies Active Medications: Active Medications Acetaminophen (Tylenol) 650 mg PO Q4H PRN PRN Reason: FEVER > 100.4 F Last Admin: 04/02/18 15:25 Dose: 650 mg Al Hydroxide/Mg Hydroxide (Milk Of Shilpa Limarycruz) 15 ml PO DAILY PRN PRN Reason: Constipation Last Admin: 04/02/18 09:39 Dose: 15 ml Albuterol (Albuterol Neb (Prn)) 2.5 mg NEB Q4HR NEB PRN PRN Reason: SHORTNESS OF BREATH Last Admin: 04/03/18 02:17 Dose: 2.5 mg Albuterol (Duoneb Neb (Manjeet)) 1 ampul NEB QID NEB MANJEET Last Admin: 04/02/18 19:44 Dose: 1 ampul Atenolol (Tenormin) 50 mg PO DAILY [facility] Last Admin: 04/02/18 09:38 Dose: 50 mg Azithromycin (Zithromax) 500 mg PO DAILY [facility] Last Admin: 04/02/18 18:22 Dose: 500 mg Budesonide (Pulmocort Respule Neb) 0.5 mg NEB BID NEB [facility] Last Admin: 04/02/18 19:44 Dose: 0.5 mg Buspirone HCl (Buspar) 5 mg PO BID [facility] Last Admin: 04/02/18 21:09 Dose: 5 mg Buspirone HCl (Buspar) 2.5 mg PO BID [facility] Last Admin: 04/02/18 21:09 Dose: 2.5 mg Enoxaparin Sodium (Lovenox Inj) 40 mg SQ Q24H [facility] Last Admin: 04/02/18 18:22 Dose: 40 mg Cefepime HCl 2,000 mg/ Sodium (Chloride) 100 mls @ 200 mls/hr IV.SIG Q8H [facility] Vancomycin HCl 1,000 mg/ (Sodium Chloride) 250 mls @ 250 mls/hr IV.SIG Q12H [facility] Losartan Potassium (Cozaar) 50 mg PO DAILY [facility] Last Admin: 04/02/18 09:38 Dose: 50 mg Montelukast Sodium (Singulair) 10 mg PO QPM [facility] Last Admin: 04/02/18 18:23 Dose: 10 mg Pharmacy Profile Note (Vancomycin Consult Pharmacy) 1 each OTHER UNSCH PRN PRN Reason: Pharmacy to dose Simethicone (Phazyme Chew) 125 mg PO TID [facility] Last Admin: 04/02/18 18:23 Dose: 125 mg Sodium Chloride (Ns Flush) 2 ml IV.FLUSH PRN PRN PRN Reason: FLUSH AFTER USING IV ACCESS Last Admin: 04/01/18 20:43 Dose: 2 ml Allergies Allergy/AdvReac Type Severity Reaction Status Date / Time No Known Allergies Allergy Verified 03/30/18 07:40 Home Medications Medication Instructions Recorded Confirmed Type acetaminophen 650 mg PO Q4H PRN 03/30/18 03/30/18 History albuterol sulfate 2.5 mg INHALATION Q4H PRN 03/30/18 03/30/18 History atenolol 50 mg PO DAILY 03/30/18 03/30/18 History budesonide 0.5 mg INHALATION BID 03/30/18 03/30/18 History buspirone 7.5 mg PO BID 03/30/18 03/30/18 History cefuroxime axetil 250 mg PO Q12H 03/30/18 03/30/18 History ipratropium-albuterol 3 ml INHALATION QID 03/30/18 03/30/18 History ipratropium-albuterol [Combivent 1 puff INHALATION TID 03/30/18 03/30/18 History Respimat] magnesium hydroxide [Milk of 15 ml PO DAILY PRN 03/30/18 03/30/18 History Magnesia] montelukast 10 mg PO QPM 03/30/18 03/30/18 History simethicone [Gas-X Extra Strength] 125 mg PO TID 03/30/18 03/30/18 History valsartan 160 mg PO DAILY 03/30/18 03/30/18 History Physical Exam Vital signs: Vital Signs 04/02/18 07:12 04/02/18 08:00 04/02/18 11:03 Temperature 98.1 F Pulse Rate 81 94 H 78 Respiratory Rate 16 18 16 Blood Pressure 174/79 H Pulse Oximetry 93 L 95 04/02/18 12:00 04/02/18 14:59 04/02/18 16:00 Temperature 99.9 F H 99.1 F Pulse Rate 94 H 92 H 97 H Respiratory Rate 20 16 20 Blood Pressure 161/91 H 164/78 H Pulse Oximetry 95 95 04/02/18 19:44 04/02/18 20:00 04/02/18 23:33 Temperature 98.1 F 98.1 F Pulse Rate 81 81 85 Respiratory Rate 18 17 14 Blood Pressure 166/70 H 137/62 Pulse Oximetry 91 L 93 L 94 L 04/03/18 02:10 04/03/18 02:25 04/03/18 03:06 Temperature 100.2 F H Pulse Rate 119 H Respiratory Rate 30 H 28 H Blood Pressure 198/104 H 190/70 H Pulse Oximetry 89 L 99 100 04/03/18 03:54 Temperature Pulse Rate Respiratory Rate Blood Pressure Pulse Oximetry 98 Intake & Output 04/02/18 04/02/18 04/03/18 06:59 18:59 06:59 Intake Total 400 / 400 100 / 100 100 / 100 Output Total 200 / 200 700 / 700 Balance 200 / 200 -600 / -600 100 / 100 Weight 56 kg Intake: IV 100 / 100 100 / 100 Ofirmev Inj 1,000 mg In 100 ml 100 / 100 @ 400 mls/hr IV.SIG NOW ONE Rx# :[id number] Rocephin Inj 1,000 MG In NS Inj 100 / 100 100 ML @ 200 mls/hr IV.SIG Q24H [facility] Rx#:[id number] Oral 400 / 400 Output: Urine 200 / 200 700 / 700 Other: # Voids 2 Date of Last Bowel Movement 03/29/18 03/29/18 03/29/18 - Constitutional moderate distress - Routine HEENT Exam Head: Present: normocephalic, atraumatic Eye: Present: PERRL ENT: Present: mucous membranes moist - Routine Neck Exam Present: supple. Absent: JVD, carotid bruit - Routine Respiratory Exam Present: accessory muscle use, respiratory distress, wheezes, crackles. Absent : rales, rhonchi - Routine Cardiovascular Exam Present: RRR, tachycardia - Routine Abdominal Exam Present: soft, normoactive bowel sounds - Routine Extremities Exam Absent: cyanosis, clubbing, edema - Routine Skin Exam Present: intact. Absent: cyanosis, erythema - Routine Neurological Exam Present: altered mental status, moving all extremities - Urinary Catheter Management Straight Cath placed during this visit: yes Urethral indwelling: No Reason for continuing: Acute urinary retention Insertion date: 04/02/18 Insertion time: 13:00 Septic Shock Reassessment Septic shock perfusion: reassessment completed Assessment and Plan - Assessment and Plan Plan: Respiratory failure -Underlying COPD -Recent pneumonia -Escalate antibiotics with vancomycin to cover HAP -Changed Rocephin to cefepime to cover for Pseudomonas, patient with underlying structural lung disease from healthcare facility -DuoNeb scheduled and as needed -Continue IV steroid Elevated troponin I level -Type II -No chest pain -No EKG changes -Continue series of troponins -Further per cardiology HTN - Atenolol -Losartan Depression -Buspirone DVT GI prophylaxis -Teds SCDs -Lovenox -Pepcid 35 minutes of critical care
[2018-04-03] MEDS ORDERED: Vancomycin Inj 1,000 MG in Sodium Chlor 0.9% Inj 250 ML IV.SIG SCH (05:00)
[2018-04-03] MEDS ORDERED: Magnesium Sulfate Inj 4 GM in Sodium Chlor 0.9% Inj 92 ML IV.SIG PRN (09:09)
[2018-04-03] MEDS ORDERED: Magnesium Oxide 400 MG Tablet PO PRN (09:09)
[2018-04-03] MEDS ORDERED: Magnesium Sulfate Inj 2 GM in Sodium Chlor 0.9% Inj 96 ML IV.SIG PRN (09:09)
[2018-04-03] MEDS ORDERED: Sodium Phosphate Inj 30 MMOL in Sodium Chlor 0.9% Inj 250 ML IV.SIG PRN (09:09)
[2018-04-03] MEDS ORDERED: Potassium Phosphate 500 MG Soluble Tablet PO PRN ×2 (09:09)
[2018-04-03] MEDS ORDERED: Potassium Chlor 40 mEq Premix 40 MEQ/100 ML PIGGYBACK IV.SIG PRN ×2 (09:09)
[2018-04-03] MEDS ORDERED: Potassium Phosphate Inj 30 MMOL in Sodium Chlor 0.9% Inj 250 ML IV.SIG PRN (09:09)
[2018-04-03] MEDS ORDERED: Potassium Chlor 20 mEq Premix 20 MEQ/100 ML PIGGYBACK IV.SIG PRN ×2 (09:09)
[2018-04-03] MEDS ORDERED: Potassium Chloride 25 MEQ Effervescent Tablet PO PRN (09:09)
[2018-04-03] MEDS: Simethicone 125 MG Chew Tablet PO SCH ×3 (09:53→18:26)
[2018-04-03] MEDS: Atenolol 50 MG Tablet PO SCH (09:53)
[2018-04-03] MEDS: Azithromycin 250 MG Tablet PO SCH (09:54)
[2018-04-03 13:54] LABS: ABG Base Excess 2.7 mmol/L (-2-2); ABG PCO2 43 mmHg (38-42); ABG PO2 117 mmHg (61-120)
[2018-04-03] MEDS: Labetalol HCl Inj 100 MG/20 ML Vial IV.PUSH PRN (14:13)
[2018-04-03] MEDS: Enoxaparin Inj 40 MG/0.4 ML Syringe SQ SCH (16:44)
[2018-04-03] MEDS: Senna/Docusate Sodium 8.6/50 MG Tablet PO SCH (16:45)
[2018-04-03] MEDS: Montelukast 10 MG Tablet PO SCH (18:26)
[2018-04-03] MEDS ORDERED: Melatonin 5 MG Tablet PO PRN (20:00)
[2018-04-04] MEDS ORDERED: Vancomycin Inj 1,000 MG in Sodium Chlor 0.9% Inj 250 ML IV.SIG SCH (04:00)
[2018-04-04 05:08] LABS: Baso % (Auto) 0.1 % (0.0-2.0); Hematocrit 26.6 % (35.0-46.0); Hemoglobin 9.4 gm/dL (11.6-15.3); Lymph # (Auto) 0.5 th/mm3 (1.0-4.8); Lymph % (Auto) 6.8 % (9.0-44.0); Mean Corpuscular HGB Conc 35.2 % (32.0-36.0); Mean Corpuscular Hemoglobin 29.3 pg (27.0-34.0); Mean Corpuscular Volume 83.4 fL (80.0-100.0); Mean Platelet Volume 7.9 fL (7.0-11.0); Mono # (Auto) 0.6 th/mm3 (0.0-0.9); Mono % (Auto) 7.9 % (0.0-8.0); Neut # (Auto) 6.2 th/mm3 (1.8-7.7); Neut % (Auto) 85.2 % (16.0-70.0); Platelet Count 267 th/mm3 (150-450); Red Blood Count 3.19 mil/mm3 (4.00-5.30); Red Cell Distribution Width 14.5 % (11.6-17.2); White Blood Count 7.3 th/mm3 (4.0-11.0)
[2018-04-04 05:33] LABS: Albumin 2.2 g/dL (3.4-5.0); Anion Gap 9 meq/L (5-15); Aspartate Aminotransferase 19 U/L (15-37); Blood Urea Nitrogen 20 mg/dL (7-18); Calcium 8.6 mg/dL (8.5-10.1); Carbon Dioxide 26.2 meq/L (21.0-32.0); Chloride 99 meq/L (98-107); Glomerular Filtration Rate 88 mL/min (>89); Glucose,Random 162 mg/dL (74-106); Magnesium 2.1 mg/dL (1.5-2.5); Sodium 134 meq/L (136-145)
[2018-04-04 05:35] LABS: Alanine Aminotransferase 18 U/L (10-53)
[2018-04-04 05:38] LABS: Alkaline Phosphatase 60 U/L (45-117); Total Protein 5.5 g/dL (6.4-8.2)
[2018-04-04] MEDS: Labetalol HCl Inj 100 MG/20 ML Vial IV.PUSH PRN (06:16)
--- NOTE | 2018-04-04 08:18 | P.PNCC ---
Subjective Subjective Remarks/Hospital Course: 77 year old female with past medical history of hypertension, COPD, GERD, presented to ER for AMS from [facility]. She is there for rehab s/p PNA and pelvis fracture. She was currently being treated with ceftin for PNA. She was found to have some elevated troponin, denied CP, does have some SOB, currently on O2, does not wear o2 at home. She has been admitted to hospitalist service and medicine floor, however clinically deteriorated developing significant shortness of breath. The rapid response team was called and the patient has been transferred to ICU. 04/04: Patient on intermittent bipap during the day yesterday but did not require bipap overnight. This morning, her only complaint is "I was supposed to go to rehab at [place] today" and is concerned that she will lose her spot there. She offers no other complaints. Objective Vital Signs / I&O: Vital Signs 04/03/18 09:00 04/03/18 09:02 04/03/18 09:33 Temperature Pulse Rate 78 79 77 Respiratory Rate 22 22 22 Blood Pressure 181/77 H 175/111 H Pulse Oximetry 99 99 100 04/03/18 10:00 04/03/18 10:02 04/03/18 10:19 Temperature Pulse Rate 72 72 68 Respiratory Rate 21 21 18 Blood Pressure 94/53 L 120/56 L Pulse Oximetry 98 98 100 04/03/18 10:34 04/03/18 10:43 04/03/18 11:00 Temperature Pulse Rate 66 69 71 Respiratory Rate 15 18 20 Blood Pressure 112/56 L 114/55 L Pulse Oximetry 100 100 04/03/18 12:00 04/03/18 13:00 04/03/18 13:04 Temperature 98.1 F Pulse Rate 68 71 72 Respiratory Rate 19 19 20 Blood Pressure 122/58 L 196/145 H 173/76 H Pulse Oximetry 100 100 99 04/03/18 14:00 04/03/18 14:07 04/03/18 15:00 Temperature Pulse Rate 73 72 74 Respiratory Rate 23 22 25 H Blood Pressure 192/81 H 174/76 H 169/67 H Pulse Oximetry 99 99 100 04/03/18 15:21 04/03/18 16:00 04/03/18 16:01 Temperature 98.1 F Pulse Rate 76 78 78 Respiratory Rate 20 27 H 33 H Blood Pressure 193/80 H 168/69 H Pulse Oximetry 97 96 04/03/18 17:00 04/03/18 17:01 04/03/18 18:00 Temperature Pulse Rate 78 78 79 Respiratory Rate 27 H 27 H 30 H Blood Pressure 174/70 H 176/72 H 177/99 H Pulse Oximetry 94 L 99 100 04/03/18 19:00 04/03/18 20:00 04/03/18 21:00 Temperature 97.9 F Pulse Rate 83 81 79 Respiratory Rate 21 22 20 Blood Pressure 147/64 H 163/85 H 170/79 H Pulse Oximetry 99 99 100 04/03/18 21:09 04/03/18 22:00 04/03/18 23:00 Temperature Pulse Rate 82 82 76 Respiratory Rate 17 22 26 H Blood Pressure 147/70 H 151/70 H Pulse Oximetry 99 100 04/04/18 00:00 04/04/18 00:04 04/04/18 01:00 Temperature 98 F 97.8 F Pulse Rate 73 77 74 Respiratory Rate 19 24 22 Blood Pressure 155/70 H 163/76 H Pulse Oximetry 99 100 100 04/04/18 02:00 04/04/18 03:00 04/04/18 04:00 Temperature 98.1 F Pulse Rate 76 73 78 Respiratory Rate 17 17 21 Blood Pressure 158/74 H 145/66 H 157/70 H Pulse Oximetry 100 100 100 04/04/18 05:00 04/04/18 05:17 04/04/18 06:00 Temperature Pulse Rate 81 81 78 Respiratory Rate 22 24 24 Blood Pressure 174/77 H 186/81 H Pulse Oximetry 99 99 100 04/04/18 06:12 Temperature Pulse Rate 79 Respiratory Rate 24 Blood Pressure 188/82 H Pulse Oximetry 99 Intake & Output 04/03/18 04/04/18 04/04/18 18:59 06:59 18:59 Intake Total 850 / 850 810 / 810 Output Total 1100 / 1100 350 / 350 Balance -250 / -250 460 / 460 Weight 57.6 kg Intake: IV 350 / 350 450 / 450 Maxipime Inj 2,000 MG In NS Inj 100 / 100 200 / 200 100 ML @ 200 mls/hr IV.SIG Q8H [facility] Rx#:[id number] Vancomycin Inj 1,000 MG In NS 250 / 250 250 / 250 Inj 250 ML @ 250 mls/hr IV.SIG Q24H [facility] Rx#:[id number] Oral 500 / 500 360 / 360 Output: Urine Amount (Catheter) 1100 / 1100 350 / 350 Indwelling Urethral Catheter 1100 / 1100 350 / 350 Other: Date of Last Bowel Movement 03/29/18 03/29/18 # Bowel Movements 0 Result Diagrams: 04/04/18 04:37 04/04/18 04:37 Objective Remarks: GEN: Frail-appearing elderly female sitting up in bed, awake and alert, no acute distress HEENT: NCAT, PERRL NECK: Trachea midline CARDIO: Regular rate and rhythm PULM: Clear to auscultation bilaterally, no wheezing, strong cough ABD/GI: Soft, non-tender in all quadrants EXT/MSK: No peripheral edema SKIN: Warm and well-perfused, no rashes NEURO: Awake and alert, answers questions appropriately, no focal neuro deficits PSYCH: Calm, cheerful affect Assessment and Plan - Assessment and Plan Plan: 77yF transferred to [facility] for respiratory distress requiring non-invasive ventilation, now much improved NEURO: History of anxiety/ depression Difficulty sleeping -Continue home dose of buspar -Added low-dose PRN melatonin last night as patient was requesting something to help her sleep. She isn't on any prescriptions medications for insomnia but reports that she occasionally takes Tylenol PM as a sleep aid. CARDIO: Type II NSTEMI History of essential hypertension -Likely demand-related from pneumonia/ respiratory distress -Trops peaked at 0.5 on 03/30, no longer trending -TTE on 03/30 showed an EF of 60-65%, trace TR, PAP 35 mmHg -Seen by Dr. 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 This can be extended past 4 days if patient's symptoms resolve in the interim she won't need a taper (5 days of therapy total) -Follow up legionella antigen -Patient had a positive D dimer sent during her rapid response on 04/03 but my suspicion for PE is very low given her rapid improvement from a respiratory standpoint, no chest pain, and alternate cause of dyspnea (PNA) F/E/N: -Advance to cardiac diet -No maintenance fluids -Lytes wnl, ICU electrolyte protocol ID: HCAP -Currently on cefepime, vanco, azithromycin -Check MRSA swab-- if negative, vanco can likely be discontinued and patient can either be continued on cefepime/ azithro (while still inpatient) or keflex/ azithro (if discharged to rehab). Would recommend against using levaquin given patient's age. -Follow up urine legionella antigen DVT GI prophylaxis -PPI -SCDs/ lovenox OVERALL: This patient is much improved from her acute respiratory distress secondary to pneumonia/ COPD exacerbation. She is no longer requiring bipap support and can transition back to the family medicine service. Dispo planning. Level 2 follow up visit To help prompt me to consider important information that might be impacting today's encounter and assessment, information from prior notes written by myself or my colleagues may have been "brought forward" into today's note. My signature on this note, however, is an attestation that I personally performed the exam, history, and/or decision-making noted today, and, unless otherwise indicated, the interactions with patient, family, and staff as well as the review of records all occurred today. I also attest that the listed assessment and stated plan reflect my best clinical judgment today based on the combination of historical information, prior notes, and today's exam/ interactions. Code Status: Full
[2018-04-04] MEDS: Azithromycin 250 MG Tablet PO SCH (08:27)
[2018-04-04] MEDS: Senna/Docusate Sodium 8.6/50 MG Tablet PO SCH (08:27)
[2018-04-04] MEDS: Simethicone 125 MG Chew Tablet PO SCH ×3 (08:33→13:58)
[2018-04-04] MEDS ORDERED: Atenolol 25 MG Tablet PO SCH (09:30)
[2018-04-04 09:33] VITALS: TEMP 97.9
[2018-04-04 14:03] VITALS: BP 178/78; PULSE 78; RESP 26; O2SAT 99
[2018-04-04] MEDS: Enoxaparin Inj 40 MG/0.4 ML Syringe SQ SCH (15:19)
[2018-04-06] MEDS ORDERED: Pharmacy Ordered Lab Info OTHER ONE (03:45)
--- NOTE | 2018-04-12 20:14 | P.DS ---
Date of admission: 03/30/18 08:48 Primary care physician: Michael Whyte DO Brief History from admission: 77 year old female with PMH of Htn, Copd, GERD. She presented to ER for AMS from [facility]. She is there for rehab s/p PNA and Fx pelvis. She is currently being treated with ceftin for PNA. She is currently Alert and oriented. She was found to have some elevated troponin, denies CP,does have some SOB, currently on O2, does not wear o2 at home DS: Diagnosis - Discharge Diagnosis (1) Elevated troponin I level Status: Acute (2) Pneumonia Status: Acute (3) COPD (chronic obstructive pulmonary disease) Status: Acute (4) HTN (hypertension) Status: Acute DS: Summary - Time Spent with Patient Total time spent providing and/or coordinating discharge services: 30 Less than 30 minutes - Quality: AMI Clinical Trial Participant: No - Quality: Stroke Symptom Onset Unknown: No - Quality: VTE Is this test being ordered to rule out VTE?: No Deep Vein Thrombosis/Pulmonary Embolism Present on Admission: No Exam - Constitutional no acute distress - Routine HEENT Exam Eye: Present: PERRL ENT: Present: mucous membranes moist - Routine Neck Exam Present: supple - Routine Respiratory Exam Present: CTA bilaterally - Routine Cardiovascular Exam Present: S1, S2 - Routine Abdominal Exam Present: soft, normoactive bowel sounds - Routine Skin Exam Present: dry, warm - Routine Neurological Exam Present: alert, oriented X3 Results Procedures completed during hospitalization: Echo 03/30/2018 Normal left ventricular size and wall thickness. The left ventricular systolic function is normal with an estimated ejection fraction in the range of 60-65%. No regional wall motion abnormalities are present. There is trace tricuspid valve regurgitation. The estimated pulmonary arterial pressure is 35 mmHg. - Impressions ITS Impressions Head CT 03/30/18 07:17 CONCLUSION: 1. Negative for acute process . Chest X-Ray 04/03/18 00:00 CONCLUSION: Worsening bibasilar infiltrates. Discharge Plan - Discharge Disposition Patient Disposition: Discharge to SNF - Discharge Order Discharge Orders: Discharge Order (Routine); Ordered 04/04/18 Ordered By: Tisha Davalos - Physicians Team Primary Care Provider: Michael Whyte Attending Provider: Michael Whyte Other Providers: Merlin Lewis MD ; [facility],[place] ; Jonny Boyd MD
== END 2018-04-04 15:47 | DRG 193 ==
LOC: NEDA 06:47 → NEPC 06:47 → OBSVTOIN 08:48 → N04 16:29 → N03 04-03 02:41
PROVIDERS: ADMIT Family Medicine; ATTEND Family Medicine
DX: J44.0 Chronic obstructive pulmonary disease with (acute) lower respiratory infection; J96.01 Acute respiratory failure with hypoxia; F32.9 Major depressive disorder, single episode, unspecified; Y95 Nosocomial condition; I10 Essential (primary) hypertension; G47.00 Insomnia, unspecified; J44.1 Chronic obstructive pulmonary disease with (acute) exacerbation; J18.9 Pneumonia, unspecified organism; I21.A1 Myocardial infarction type 2; Z87.891 Personal history of nicotine dependence; K21.9 Gastro-esophageal reflux disease without esophagitis
CPT/HCPCS: 36600; 70450; 71010; 71045; 80048; 80053; 81001; 82805; 83605; 83735; 84443; 84484; 85025; 85379; 87040; 87086; 87449; 87641; 93005; 93306; 94002; 94640; 94656; 94664; 94665; 97163; 97167; 99285; G8987; G8988; J0131; J0692; J0696; J1650; J1940; J2060; J2920; J3370; J7050; J7506; J7512; P9612